=== PATIENT | male | born 1980 | race African-American/Black ===

== ENCOUNTER 2017-12-01 11:53 | Emergency (ER) | payer MEDICAID ==
[~2017-12-01] VITALS: Ht 172.7 cm; Wt 113.4 kg
[2017-12-01 12:51] VITALS: BP 120/76
[2017-12-01] MEDS ORDERED: TETRACAINE HCL 0.5% OPTH(EYE) SOLN 4ML LEFTEYE ONE (13:30)
[2017-12-01] MEDS ORDERED: FLUORESCEIN SOD 1 MG TEST STRIP LEFTEYE ONE (13:30)
== END 2017-12-01 14:22 | disposition home or self-care (01) ==
LOC: ER 11:53
DX: T15.02XA Foreign body in cornea, left eye, initial encounter (principal); X58.XXXA Exposure to other specified factors, initial encounter; Y93.89 Activity, other specified; Y92.89 Other specified places as the place of occurrence of the external cause; Y99.8 Other external cause status
CPT/HCPCS: 65220